=== PATIENT | female | born 1995 | race Caucasian/White ===

== ENCOUNTER 2016-09-26 23:21 | Emergency (ER) | payer OTHER ==
[2016-09-27 00:10] LABS: BASO # 0.1 K/mm3 (0.0-0.2); BASO % 1.4 % (0.0-1.0); EOS # 0.3 K/mm3 (0.0-0.50); EOS % 2.5 % (0.0-3.0); LARGE UNSTAINED CELL # 0.2 K/mm3 (0.0-0.4); LARGE UNSTAINED CELL % 1.8 % (0.0-4.0); MEAN CORPUSCULAR HGB CONC 32.9 g/dl (32.0-36.5); MONO # 0.4 K/mm3 (0.0-0.8); NEUTROPHILS # 5.5 K/mm3 (1.8-7.7); NEUTROPHILS % 53.3 % (36.0-66.0); PLATELET COUNT, AUTOMATED 341 k/mm3 (150-450); RED CELL DISTRIBUTION WIDTH 13.7 % (11.5-14.5); WHITE BLOOD COUNT 10.3 K/mm3 (4.0-10.0)
[2016-09-27] MEDS ORDERED: predniSONE 20 MG TAB As Ordered ONE (00:22)
[2016-09-27] MEDS ORDERED: metroNIDAZOLE (FLAGYL) 250 MG TAB As Ordered ONE (01:03)
[2016-09-27] MEDS ORDERED: FLUCONAZOLE 100 MG TAB As Ordered ONE (01:04)
--- NOTE | 2016-09-27 01:18 | EDDOCDS ---
Physician Documentation [facility] Name: Darwin Garrett Age: 21 yrs Sex: Female : 1995 Arrival Date: 09/26/2016 Time: 23:21 Bed I4 / M4 Private MD: Other - Complete Info On Cds Disposition: 09/27/16 01:03 Discharged to Home/Self Care. Impression: Vaginitis, vulvitis and vulvovaginitis in diseases classified elsewhere, Candidiasis of vulva and vagina, Allergic contact dermatitis. - Condition is Stable. - Discharge Instructions: Bacterial Vaginosis, Contact Dermatitis, Vaginitis, Monilial. - Prescriptions for Metronidazole 500 mg Oral Tablet - take 1 tablet by ORAL route 2 times per day for 7 days; 13 tablet. Betamethasone Dipropionate 0.05 % Topical Cream - apply 1 application by TOPICAL route once daily; 1 tube. - Medication Reconciliation, Local Pharmacy Hours form. - Follow up: Emergency Department; When: As needed. Follow up: RENEE Fowler; When: Call to arrange an appointment; Reason: Wound/Symptom Recheck, Recheck today's complaints, Worsening of conditions, Continuance of care. - Problem is an ongoing problem. - Symptoms are unchanged. Historical: - Allergies: No known drug Allergies; - Home Meds: 1. TriNessa Lo 0.18/0.215/0.25 mg-25 mcg oral tab 1 tab once daily - PMHx: Irregular Menses; - PSHx: none; - Social history: Smoking status: Patient states was never smoker of tobacco. No barriers to communication noted, The patient speaks fluent Nepali. - Family history: Not pertinent. - : The pt / caregiver states he / she is not on anticoagulants. Home medication list is obtained from the patient. - Exposure Risk Screening:: None identified. 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 9 in. (175.26 cm) (R); Pain 6/10; 09/27 01:06 BP 119 / 67; Pulse 78; Resp 18; Temp 96.8; Pulse Ox 98% ; Pain 3/10; ajs 09/26 23:24 Body Mass Index 16.83 (51.71 kg, 175.26 cm) gr2 MDM: 09/26 23:47 UCG by Nursing ordered. cc10 23:47 Set up pelvic ordered. cc10 23:47 Undress patient appropriately for examination ordered. cc10 23:47 CBC with Diff Ordered. EDMS 23:47 UA Ordered. EDMS 23:47 GC & Chlamydia Amplification Ordered. EDMS 23:48 TSH w/o Free T4 Ordered. EDMS 23:48 Wet Prep Ordered. EDMS 23:48 -US Pelvic Non-Ob Complete Ordered. EDMS 23:48 DUPLEX SCAN LIMITED (DOPPLER)+US Ordered. EDMS 23:49 Financial registration complete. [facility] 23:50 [facility] Payment Agreement was scanned into [employer] and attached to record. [facility] 09/27 00:19 Fluid Challenge ordered. cc10 00:19 predniSONE 20 mg PO once; administer with food or milk ordered. cc10 00:19 CBC with Diff Reviewed. cc10 00:47 UA Reviewed. cc10 00:47 Wet Prep Reviewed. cc10 00:47 TSH w/o Free T4 Reviewed. cc10 00:54 Transvaginal NON- US Ordered. EDMS 01:01 Fluconazole 200 mg PO once ordered. cc10 01:01 metroNIDAZOLE 500 mg PO once ordered. cc10 Point of Care Testing: Urine : 00:10 hCG Reading: Negative; Control Reading: Positive; ajs Ranges: Administered Medications: 00:23 Drug: predniSONE 20 mg [prednisone 20 mg tablet (1 tabs)] Route: PO; bcj 01:09 Drug: Fluconazole 200 mg [fluconazole 100 mg tablet (2 tabs)] Route: PO; af2 01:09 Drug: metroNIDAZOLE 500 mg [metronidazole 500 mg tablet (1 tabs)] Route: PO; af2 Signatures: Dispatcher MedHost EDMS Hollis Tabor PA-C PA-C cc10 Saige Chew [facility] Ketty Silva RN RN af2 Kalyan Sidhu RN bcj The chart was reviewed and I authenticate all verbal orders and agree with the evaluation and treatment provided.Attachments: 09/26 23:50 [facility] [place] [facility] MTDD
--- NOTE | 2016-09-27 01:19 | EDDOCDS ---
Nurse's Notes [facility] Name: Darwin Garrett Age: 21 yrs Sex: Female : 1995 Arrival Date: 09/26/2016 Time: 23:21 Bed I4 / M4 Private MD: Other - Complete Info On Cds Diagnosis: Vaginitis, vulvitis and vulvovaginitis in diseases classified elsewhere;Candidiasis of vulva and vagina;Allergic contact dermatitis Presentation: 09/26 23:26 Presenting complaint: Patient states: rash on left inner thigh spreading, thinks it may af2 be poison clary; lmp 06/13/16, reports vaginal bleeding-dark brown, painful- recently started new control 2 weeks ago. Risk factors: The patient reports no loss of conciousness prior to arrival. This patient has not had a hysterectomy. This patient has not begun menopause. Adult Sepsis Screening: The patient does not have new or worsening altered mentation. Patient's respiratory rate is less than 22. Systolic blood pressure is greater than 100. Patient has a qSOFA score of 0- Negative Sepsis Screen. Suicide/Homicide risk assessment- the patient denies having any suicidal and/or homicidal ideations and does not present with any other emotional, behavioral or mental health complaints. Status: The patient is a dependent. Transition of care: patient was not received from another setting of care. 23:26 Acuity: JOSE Level 4 af2 23:26 Method Of Arrival: Walkin/Carried/Asstd af2 Triage Assessment: 23:31 General: Appears in no apparent distress, Behavior is cooperative. Pain: Location: af2 abdomen Pain currently is 5 out of 10 on a pain scale. Pt Declines HIV testing. Neurological: Level of Consciousness is awake, alert, obeys commands, Oriented to person, place, time. Respiratory: Airway is patent Respiratory effort is even, unlabored. : Reports vaginal bleeding that is brown spotty. 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 TriNessa Lo 0.18/0.215/0.25 mg-25 mcg oral tab 1 tab once daily - PMHx: Irregular Menses; - PSHx: none; - Social history: Smoking status: Patient states was never smoker of tobacco. No barriers to communication noted, The patient speaks fluent Indian. - Family history: Not pertinent. - : The pt / caregiver states he / she is not on anticoagulants. Home medication list is obtained from the patient. - Exposure Risk Screening:: None identified. Screenin/09 01:16 Screening information is obtained from the patient. Fall risk: No risks identified. af2 Assistance ADL's: requires no assistance with activities of daily living. Abuse/DV Screen: The patient / caregiver reports he/she is: not in a situation that causes fear, pain or injury. Nutritional screening: No deficits noted. Advance Directives: Currently, there is no health care proxy. home support is adequate. Assessment: 01:16 General: Appears in no apparent distress, comfortable, Behavior is cooperative. af2 Neurological: Level of Consciousness is awake, alert, obeys commands, Oriented to person, place, time. Respiratory: Airway is patent Respiratory effort is even, unlabored. Derm: Skin is normal. Vital Signs: 09/26 23:24 BP 111 / 67; Pulse 69; Resp 18 S; Temp 96.9(O); Pulse Ox 99% on R/A; Weight 51.71 kg gr2 (R); Height 5 ft. 9 in. (175.26 cm) (R); Pain 6/10; 09/27 01:06 BP 119 / 67; Pulse 78; Resp 18; Temp 96.8; Pulse Ox 98% ; Pain 3/10; ajs 09/26 23:24 Body Mass Index 16.83 (51.71 kg, 175.26 cm) gr2 Vitals: 09/26 23:24 Log In Time: September 26, 2016 at 23:24. gr2 ED Course: 23:23 Patient visited by Oskar Johnson. gr2 23:23 Other - Complete Info On Cds is Private Physician. gr2 23:23 Patient moved to Waiting gr2 23:25 Patient visited by Oskar Johnson. gr2 23:25 Patient moved to Pre RCE gr2 23:30 Triage Initiated af2 23:33 Patient visited by Ketty Silva RN. af2 23:33 Patient moved to Triage 1 af2 23:36 Hollis Tabor PA-C is PHCP. cc10 23:36 Mario Alberto Escoto DO is Attending Physician. cc10 23:36 Patient visited by Hollis Tabor PA-C. cc10 23:36 Patient visited by Hollis Tabor PA-C. cc10 23:39 Patient visited by Ketty Silva RN. af2 23:50 [facility] Payment Agreement was scanned into [employer] and attached to record. [facility] 23:52 Mya Tripp RN is Primary Nurse. ajs 23:52 Patient moved to I4 / M4 ajs 23:59 Patient name changed from Darwin\S\E\S\Stoner\S\ to Darwin\S\Dora\S\Stoner. EDMS 09/27 00:06 UA Sent. ajs 00:06 CBC with Diff Sent. ajs 00:06 TSH w/o Free T4 Sent. ajs 00:11 Patient visited by Cathy Gutierrez. ajs 00:21 GC & Chlamydia Amplification Sent. bcj 00:21 Wet Prep Sent. bcj 00:26 Patient moved to Ultrasound dmg 00:42 Primary Nurse role handed off by Mya Tripp RN kb5 00:59 Patient moved to I4 / M4 dmg 01:01 Patient visited by Ketty Silva RN. af2 01:01 Transvaginal NON- US Returned. cc10 01:02 Malcolm [facility] is Referral Physician. cc10 01:06 Patient visited by Cathy Gutierrez. ajs 01:17 The patient / caregiver is instructed regarding the plan of care and ED course. af2 01:17 No IV's were initiated during this patient's visit. No procedures done that require af2 assistance. Administered Medications: 00:23 Drug: predniSONE 20 mg [prednisone 20 mg tablet (1 tabs)] Route: PO; bcj 01:09 Drug: Fluconazole 200 mg [fluconazole 100 mg tablet (2 tabs)] Route: PO; af2 01:09 Drug: metroNIDAZOLE 500 mg [metronidazole 500 mg tablet (1 tabs)] Route: PO; af2 Point of Care Testing: Urine : 00:10 hCG Reading: Negative; Control Reading: Positive; ajs Ranges: Order Results: Lab Order: CBC with Diff; SPEC'M 09/27/16 00:02 Test: WHITE BLOOD COUNT; Value: 10.3; Range: 4.0-10.0; Abnormal: Above high normal; Units: K/mm3; Status: F Test: RED BLOOD COUNT; Value: 4.87; Range: 4.00-5.40; Units: M/mm3; Status: F Test: HEMOGLOBIN; Value: 13.6; Range: 12.0-16.0; Units: g/dl; Status: F Test: HEMATOCRIT; Value: 41.4; Range: 36.0-47.0; Units: %; Status: F Test: MEAN CORPUSCULAR VOLUME; Value: 85.0; Range: 80.0-96.0; Units: fl; Status: F Test: MEAN CORPUSCULAR HEMOGLOBIN; Value: 28.0; Range: 27.0-33.0; Units: pg; Status: F Test: MEAN CORPUSCULAR HGB CONC; Value: 32.9; Range: 32.0-36.5; Units: g/dl; Status: F Test: RED CELL DISTRIBUTION WIDTH; Value: 13.7; Range: 11.5-14.5; Units: %; Status: F Test: PLATELET COUNT, AUTOMATED; Value: 341; Range: 150-450; Units: k/mm3; Status: F Test: NEUTROPHILS %; Value: 53.3; Range: 36.0-66.0; Units: %; Status: F Test: LYMPH %; Value: 37.0; Range: 24.0-44.0; Units: %; Status: F Test: MONO %; Value: 4.0; Range: 0.0-5.0; Units: %; Status: F Test: EOS %; Value: 2.5; Range: 0.0-3.0; Units: %; Status: F Test: BASO %; Value: 1.4; Range: 0.0-1.0; Abnormal: Above high normal; Units: %; Status: F Test: LARGE UNSTAINED CELL %; Value: 1.8; Range: 0.0-4.0; Units: %; Status: F Test: NEUTROPHILS #; Value: 5.5; Range: 1.8-7.7; Units: K/mm3; Status: F Test: LYMPH #; Value: 4.0; Range: 1.5-6.5; Units: K/mm3; Status: F Test: MONO #; Value: 0.4; Range: 0.0-0.8; Units: K/mm3; Status: F Test: EOS #; Value: 0.3; Range: 0.0-0.50; Units: K/mm3; Status: F Test: BASO #; Value: 0.1; Range: 0.0-0.2; Units: K/mm3; Status: F Test: LARGE UNSTAINED CELL #; Value: 0.2; Range: 0.0-0.4; Units: K/mm3; Status: F Lab Order: UA; SPEC'M 09/27/16 00:02 Test: APPEARANCE, URINE; Value: CLEAR; Range: CLEAR; Status: F Test: COLOR, URINE; Value: YELLOW; Range: YELLOW; Status: F Test: PH,URINE; Value: 7.0; Range: 5.0-9.0; Units: UNITS; Status: F Test: SPECIFIC GRAVITY URINE AUTO; Value: 1.025; Range: 1.002-1.035; Status: F Test: PROTEIN, URINE AUTO; Value: NEGATIVE; Range: NEGATIVE; Units: mg/dL; Status: F Test: GLUCOSE, URINE (UA) AUTO; Value: NEGATIVE; Range: NEGATIVE; Units: mg/dL; Status: F Test: KETONE, URINE AUTO; Value: NEGATIVE; Range: NEGATIVE; Units: mg/dL; Status: F Test: UROBILINOGEN, URINE AUTO; Value: 0.2; Range: 0.0-2.0; Units: mg/dL; Status: F Test: BILIRUBIN, URINE AUTO; Value: NEGATIVE; Range: NEGATIVE; Status: F Test: NITRITE, URINE AUTO; Value: NEGATIVE; Range: NEGATIVE; Status: F Test: LEUKOCYTE ESTERASE, URINE AUTO; Value: NEGATIVE; Range: NEGATIVE; Status: F Test: BLOOD, URINE BLOOD; Value: NEGATIVE; Range: NEGATIVE; Status: F Test: WBC, URINE AUTO; Value: 0; Range: 0-3; Units: /HPF; Status: F Test: RBC, URINE AUTO; Value: 1; Range: 0-3; Units: /HPF; Status: F Test: BACTERIA, URINE AUTO; Value: NEGATIVE; Range: NEGATIVE; Status: F Test: SQUAMOUS EPITHELIAL CELL UR AU; Value: 0; Range: 0-6; Units: /HPF; Status: F Test: MUCUS, URINE; Value: SMALL; Range: NEGATIVE; Status: F Test: HYALINE CAST, URINE AUTO; Value: 0; Range: 0-1; Units: /LPF; Status: F Lab Order: Wet Prep; SPEC'M 09/26/16 23:56 Test: WET PREP; Value: WET PREP RESULT; Status: F Test: WET PREP; Value: MANY EPITHELIAL CELLS PRESENT; Status: F Test: WET PREP; Value: MODERATE CLUE CELLS PRESENT; Status: F Test: WET PREP; Value: MANY WBC; Status: F Test: WET PREP; Value: MANY LONG RODS PRESENT; Status: F Test: WET PREP; Value: MODERATE SHORT RODS PRESENT; Status: F Test: WET PREP; Value: FEW RBC; Status: F Test: WET PREP; Value: FEW YEAST LIKE ORGANISM WITH PSEUDOHYPHAE PRESENT; Status: F Lab Order: TSH w/o Free T4; SPEC'M 09/27/16 00:02 Test: THYROID STIMULATING HORMONE; Value: 2.750; Range: 0.358-3.740; Units: uIU/ML; Status: F Outcome: 01:03 Discharge ordered by Provider. cc10 01:17 Discharge Assessment: Patient awake, alert and oriented x 3. No cognitive and/or af2 functional deficits noted. Patient verbalized understanding of disposition instructions. patient administered narcotics - no. The following High Risk Discharge criteria are identified: None. Discharged to home ambulatory. Condition: stable. Discharge instructions given to patient, Instructed on discharge instructions, follow up and referral plans. medication usage, Demonstrated understanding of instructions, medications, Pt was receptive of discharge instructions/ teaching. No special radiology studies were completed. Property :Personal belongings accompany Pt. 01:18 Patient left the ED. af2 Signatures: Dispatcher MedHost EDKalyan Preciado, RN RN Jazz Ornelas Kristopher, MAEGAN OPERATOR [employer] kb5 Cathy Gutierrez Gainslee gr2 Hollis Tabor, PA-C PA-C cc10 Saige Chew Amber,EVGENY RN af2 MTDD
--- NOTE | 2016-09-27 02:10 | REPUSA ---
CLINICAL HISTORY: Pelvic pain. Spotting. TECHNIQUE: Realtime sonographic images were obtained in multiple projections via TV approach. COMMENTS: The uterus is anteverted measuring 9.2 x 3.6x5.4 cm. The endometrial echo pattern is within normal li mits measuring 14.1 mm. There is no evidence of free fluid within the pelvic cul-de-sac. The right ovary measures 4.1x2.7x2.6 cm and the left ovary measures 3.7x2.7x2.5 cm. Both ovaries are free of solid or cystic mass. There is no evidence for abnormal vascularity. IMPRESSION: Normal study. Thank you for your kind referral of this patient.
--- NOTE | 2016-09-29 02:19 | EDDOCDS ---
Physician Documentation [facility] Name: Darwin Garrett Age: 21 yrs Sex: Female : 1995 Arrival Date: 09/26/2016 Time: 23:21 Bed I4 / M4 Private MD: Other - Complete Info On Cds Disposition: 09/27/16 01:03 Discharged to Home/Self Care. Impression: Vaginitis, vulvitis and vulvovaginitis in diseases classified elsewhere, Candidiasis of vulva and vagina, Allergic contact dermatitis. - Condition is Stable. - Discharge Instructions: Bacterial Vaginosis, Contact Dermatitis, Vaginitis, Monilial. - Prescriptions for Metronidazole 500 mg Oral Tablet - take 1 tablet by ORAL route 2 times per day for 7 days; 13 tablet. Betamethasone Dipropionate 0.05 % Topical Cream - apply 1 application by TOPICAL route once daily; 1 tube. - Medication Reconciliation, Local Pharmacy Hours form. - Follow up: Emergency Department; When: As needed. Follow up: RENEE Fowler; When: Call to arrange an appointment; Reason: Wound/Symptom Recheck, Recheck today's complaints, Worsening of conditions, Continuance of care. - Problem is an ongoing problem. - Symptoms are unchanged. Historical: - Allergies: No known drug Allergies; - Home Meds: 1. TriNessa Lo 0.18/0.215/0.25 mg-25 mcg oral tab 1 tab once daily - PMHx: Irregular Menses; - PSHx: none; - Social history: Smoking status: Patient states was never smoker of tobacco. No barriers to communication noted, The patient speaks fluent Hungarian. - Family history: Not pertinent. - : The pt / caregiver states he / she is not on anticoagulants. Home medication list is obtained from the patient. - Exposure Risk Screening:: None identified. 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 9 in. (175.26 cm) (R); Pain 6/10; 09/27 01:06 BP 119 / 67; Pulse 78; Resp 18; Temp 96.8; Pulse Ox 98% ; Pain 3/10; ajs 09/26 23:24 Body Mass Index 16.83 (51.71 kg, 175.26 cm) gr2 MDM: 09/26 23:47 UCG by Nursing ordered. cc10 23:47 Set up pelvic ordered. cc10 23:47 Undress patient appropriately for examination ordered. cc10 23:47 CBC with Diff Ordered. EDMS 23:47 UA Ordered. EDMS 23:47 GC & Chlamydia Amplification Ordered. EDMS 23:48 TSH w/o Free T4 Ordered. EDMS 23:48 Wet Prep Ordered. EDMS 23:48 -US Pelvic Non-Ob Complete Ordered. EDMS 23:48 DUPLEX SCAN LIMITED (DOPPLER)+US Ordered. EDMS 23:49 [facility] registration complete[facility] 23:50 [facility] Payment Agreement was scanned into [employer] and attached to record. [facility] 09/27 00:19 Fluid Challenge ordered. cc10 00:19 predniSONE 20 mg PO once; administer with food or milk ordered. cc10 00:19 CBC with Diff Reviewed. cc10 00:47 UA Reviewed. cc10 00:47 Wet Prep Reviewed. cc10 00:47 TSH w/o Free T4 Reviewed. cc10 00:54 Transvaginal NON- US Ordered. EDMS 01:01 Fluconazole 200 mg PO once ordered. cc10 01:01 metroNIDAZOLE 500 mg PO once ordered. cc10 11:41 T-Sheet-- Draft Copy was scanned into [employer] and attached to record. Point of Care Testing: Urine : 00:10 hCG Reading: Negative; Control Reading: Positive; ajs Ranges: Administered Medications: 00:23 Drug: predniSONE 20 mg [prednisone 20 mg tablet (1 tabs)] Route: PO; bcj 01:09 Drug: Fluconazole 200 mg [fluconazole 100 mg tablet (2 tabs)] Route: PO; af2 01:09 Drug: metroNIDAZOLE 500 mg [metronidazole 500 mg tablet (1 tabs)] Route: PO; af2 Signatures: Dispatcher MedHost EDOK Yanet Burns, Reg Reg gb Hollis Tabor, PAJoshuaC PAJoshuaC cc10 Saige Chew [facility] Ketty Silva RN RN af2 Kalyan Sidhu RN bcj The chart was reviewed and I authenticate all verbal orders and agree with the evaluation and treatment provided.Attachments: 09/26 23:50 [place] Payment Agreement [facility] 09/27 11:41 T-Sheet-- Draft Copy gb Chart Complete MTDD
--- NOTE | 2016-09-29 02:19 | EDDOCDS ---
Physician Documentation [facility] Name: Darwin Garrett Age: 21 yrs Sex: Female : 1995 Arrival Date: 09/26/2016 Time: 23:21 Bed I4 / M4 Private MD: Other - Complete Info On Cds Disposition: 09/27/16 01:03 Discharged to Home/Self Care. Impression: Vaginitis, vulvitis and vulvovaginitis in diseases classified elsewhere, Candidiasis of vulva and vagina, Allergic contact dermatitis. - Condition is Stable. - Discharge Instructions: Bacterial Vaginosis, Contact Dermatitis, Vaginitis, Monilial. - Prescriptions for Metronidazole 500 mg Oral Tablet - take 1 tablet by ORAL route 2 times per day for 7 days; 13 tablet. Betamethasone Dipropionate 0.05 % Topical Cream - apply 1 application by TOPICAL route once daily; 1 tube. - Medication Reconciliation, Local Pharmacy Hours form. - Follow up: Emergency Department; When: As needed. Follow up: RENEE Fowler; When: Call to arrange an appointment; Reason: Wound/Symptom Recheck, Recheck today's complaints, Worsening of conditions, Continuance of care. - Problem is an ongoing problem. - Symptoms are unchanged. Historical: - Allergies: No known drug Allergies; - Home Meds: 1. TriNessa Lo 0.18/0.215/0.25 mg-25 mcg oral tab 1 tab once daily - PMHx: Irregular Menses; - PSHx: none; - Social history: Smoking status: Patient states was never smoker of tobacco. No barriers to communication noted, The patient speaks fluent Spanish. - Family history: Not pertinent. - : The pt / caregiver states he / she is not on anticoagulants. Home medication list is obtained from the patient. - Exposure Risk Screening:: None identified. 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 9 in. (175.26 cm) (R); Pain 6/10; 09/27 01:06 BP 119 / 67; Pulse 78; Resp 18; Temp 96.8; Pulse Ox 98% ; Pain 3/10; ajs 09/26 23:24 Body Mass Index 16.83 (51.71 kg, 175.26 cm) gr2 MDM: 09/26 23:47 UCG by Nursing ordered. cc10 23:47 Set up pelvic ordered. cc10 23:47 Undress patient appropriately for examination ordered. cc10 23:47 CBC with Diff Ordered. EDMS 23:47 UA Ordered. EDMS 23:47 GC & Chlamydia Amplification Ordered. EDMS 23:48 TSH w/o Free T4 Ordered. EDMS 23:48 Wet Prep Ordered. EDMS 23:48 -US Pelvic Non-Ob Complete Ordered. EDMS 23:48 DUPLEX SCAN LIMITED (DOPPLER)+US Ordered. EDMS 23:49 Financial registration complete. [facility] 23:50 [facility] Payment Agreement was scanned into [employer] and attached to record. [facility] 09/27 00:19 Fluid Challenge ordered. cc10 00:19 predniSONE 20 mg PO once; administer with food or milk ordered. cc10 00:19 CBC with Diff Reviewed. cc10 00:47 UA Reviewed. cc10 00:47 Wet Prep Reviewed. cc10 00:47 TSH w/o Free T4 Reviewed. cc10 00:54 Transvaginal NON- US Ordered. EDMS 01:01 Fluconazole 200 mg PO once ordered. cc10 01:01 metroNIDAZOLE 500 mg PO once ordered. cc10 11:41 T-Sheet-- Draft Copy was scanned into [employer] and attached to record. Point of Care Testing: Urine : 00:10 hCG Reading: Negative; Control Reading: Positive; ajs Ranges: Administered Medications: 00:23 Drug: predniSONE 20 mg [prednisone 20 mg tablet (1 tabs)] Route: PO; bcj 01:09 Drug: Fluconazole 200 mg [fluconazole 100 mg tablet (2 tabs)] Route: PO; af2 01:09 Drug: metroNIDAZOLE 500 mg [metronidazole 500 mg tablet (1 tabs)] Route: PO; af2 Signatures: Dispatcher MedHost EDHI Yanet Burns, Reg Reg gb Hollis Tabor, PAJoshuaC PAJoshuaC cc10 Saige Chew [facility] Ketty Silva RN RN af2 Kalyan Sidhu RN bcj The chart was reviewed and I authenticate all verbal orders and agree with the evaluation and treatment provided.Attachments: 09/26 23:50 [place] Payment Agreement [facility] 09/27 11:41 T-Sheet-- Draft Copy gb Chart Complete MTDD
--- NOTE | 2016-09-29 02:19 | EDDOCDS ---
Nurse's Notes [facility] Name: Darwin Garrett Age: 21 yrs Sex: Female : 1995 Arrival Date: 09/26/2016 Time: 23:21 Bed I4 / M4 Private MD: Other - Complete Info On Cds Diagnosis: Vaginitis, vulvitis and vulvovaginitis in diseases classified elsewhere;Candidiasis of vulva and vagina;Allergic contact dermatitis Presentation: 09/26 23:26 Presenting complaint: Patient states: rash on left inner thigh spreading, thinks it may af2 be poison clary; lmp 06/13/16, reports vaginal bleeding-dark brown, painful- recently started new control 2 weeks ago. Risk factors: The patient reports no loss of conciousness prior to arrival. This patient has not had a hysterectomy. This patient has not begun menopause. Adult Sepsis Screening: The patient does not have new or worsening altered mentation. Patient's respiratory rate is less than 22. Systolic blood pressure is greater than 100. Patient has a qSOFA score of 0- Negative Sepsis Screen. Suicide/Homicide risk assessment- the patient denies having any suicidal and/or homicidal ideations and does not present with any other emotional, behavioral or mental health complaints. Status: The patient is a dependent. Transition of care: patient was not received from another setting of care. 23:26 Acuity: JSOE Level 4 af2 23:26 Method Of Arrival: Walkin/Carried/Asstd af2 Triage Assessment: 23:31 General: Appears in no apparent distress, Behavior is cooperative. Pain: Location: af2 abdomen Pain currently is 5 out of 10 on a pain scale. Pt Declines HIV testing. Neurological: Level of Consciousness is awake, alert, obeys commands, Oriented to person, place, time. Respiratory: Airway is patent Respiratory effort is even, unlabored. : Reports vaginal bleeding that is brown spotty. 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 TriNessa Lo 0.18/0.215/0.25 mg-25 mcg oral tab 1 tab once daily - PMHx: Irregular Menses; - PSHx: none; - Social history: Smoking status: Patient states was never smoker of tobacco. No barriers to communication noted, The patient speaks fluent Burundian. - Family history: Not pertinent. - : The pt / caregiver states he / she is not on anticoagulants. Home medication list is obtained from the patient. - Exposure Risk Screening:: None identified. Screenin/09 01:16 Screening information is obtained from the patient. Fall risk: No risks identified. af2 Assistance ADL's: requires no assistance with activities of daily living. Abuse/DV Screen: The patient / caregiver reports he/she is: not in a situation that causes fear, pain or injury. Nutritional screening: No deficits noted. Advance Directives: Currently, there is no health care proxy. home support is adequate. Assessment: 01:16 General: Appears in no apparent distress, comfortable, Behavior is cooperative. af2 Neurological: Level of Consciousness is awake, alert, obeys commands, Oriented to person, place, time. Respiratory: Airway is patent Respiratory effort is even, unlabored. Derm: Skin is normal. Vital Signs: 09/26 23:24 BP 111 / 67; Pulse 69; Resp 18 S; Temp 96.9(O); Pulse Ox 99% on R/A; Weight 51.71 kg gr2 (R); Height 5 ft. 9 in. (175.26 cm) (R); Pain 6/10; 09/27 01:06 BP 119 / 67; Pulse 78; Resp 18; Temp 96.8; Pulse Ox 98% ; Pain 3/10; ajs 09/26 23:24 Body Mass Index 16.83 (51.71 kg, 175.26 cm) gr2 Vitals: 09/26 23:24 Log In Time: September 26, 2016 at 23:24. gr2 ED Course: 23:23 Patient visited by Oskar Johnson. gr2 23:23 Other - Complete Info On Cds is Private Physician. gr2 23:23 Patient moved to Waiting gr2 23:25 Patient visited by Oskar Johnson. gr2 23:25 Patient moved to Pre RCE gr2 23:30 Triage Initiated af2 23:33 Patient visited by Ketty Silva RN. af2 23:33 Patient moved to Triage 1 af2 23:36 Hollis Tabor PA-C is PHCP. cc10 23:36 Mario Alberto Escoto DO is Attending Physician. cc10 23:36 Patient visited by Hollis Tabor PA-C. cc10 23:36 Patient visited by Hollis Tabor PA-C. cc10 23:39 Patient visited by Ketty Silva RN. af2 23:50 [facility] Payment Agreement was scanned into [employer] and attached to record. [facility] 23:52 Mya Tripp RN is Primary Nurse. ajs 23:52 Patient moved to I4 / M4 ajs 23:59 Patient name changed from Darwin\S\E\S\Stoner\S\ to Darwin\S\Dora\S\Stoner. EDMS 09/27 00:06 UA Sent. ajs 00:06 CBC with Diff Sent. ajs 00:06 TSH w/o Free T4 Sent. ajs 00:11 Patient visited by Cathy Gutierrez. ajs 00:21 GC & Chlamydia Amplification Sent. bcj 00:21 Wet Prep Sent. bcj 00:26 Patient moved to Ultrasound dmg 00:42 Primary Nurse role handed off by Mya Tripp RN kb5 00:59 Patient moved to I4 / M4 dmg 01:01 Patient visited by Ketty Silva RN. af2 01:01 Transvaginal NON- US Returned. cc10 01:02 [place] [facility] [place] Physician. cc10 01:06 Patient visited by Cathy Gutierrez. ajs 01:17 The patient / caregiver is instructed regarding the plan of care and ED course. af2 01:17 No IV's were initiated during this patient's visit. No procedures done that require af2 assistance. 02:26 -US Pelvic Non-Ob Complete Returned. EDMS 11:41 T-Sheet-- Draft Copy was scanned into [employer] and attached to record. gb Administered Medications: 00:23 Drug: predniSONE 20 mg [prednisone 20 mg tablet (1 tabs)] Route: PO; bcj 01:09 Drug: Fluconazole 200 mg [fluconazole 100 mg tablet (2 tabs)] Route: PO; af2 01:09 Drug: metroNIDAZOLE 500 mg [metronidazole 500 mg tablet (1 tabs)] Route: PO; af2 Point of Care Testing: Urine : 00:10 hCG Reading: Negative; Control Reading: Positive; ajs Ranges: Order Results: Lab Order: CBC with Diff; SPEC'M 01/09/17 00:02 Test: WHITE BLOOD COUNT; Value: 10.3; Range: 4.0-10.0; Abnormal: Above high normal; Units: K/mm3; Status: F Test: RED BLOOD COUNT; Value: 4.87; Range: 4.00-5.40; Units: M/mm3; Status: F Test: HEMOGLOBIN; Value: 13.6; Range: 12.0-16.0; Units: g/dl; Status: F Test: HEMATOCRIT; Value: 41.4; Range: 36.0-47.0; Units: %; Status: F Test: MEAN CORPUSCULAR VOLUME; Value: 85.0; Range: 80.0-96.0; Units: fl; Status: F Test: MEAN CORPUSCULAR HEMOGLOBIN; Value: 28.0; Range: 27.0-33.0; Units: pg; Status: F Test: MEAN CORPUSCULAR HGB CONC; Value: 32.9; Range: 32.0-36.5; Units: g/dl; Status: F Test: RED CELL DISTRIBUTION WIDTH; Value: 13.7; Range: 11.5-14.5; Units: %; Status: F Test: PLATELET COUNT, AUTOMATED; Value: 341; Range: 150-450; Units: k/mm3; Status: F Test: NEUTROPHILS %; Value: 53.3; Range: 36.0-66.0; Units: %; Status: F Test: LYMPH %; Value: 37.0; Range: 24.0-44.0; Units: %; Status: F Test: MONO %; Value: 4.0; Range: 0.0-5.0; Units: %; Status: F Test: EOS %; Value: 2.5; Range: 0.0-3.0; Units: %; Status: F Test: BASO %; Value: 1.4; Range: 0.0-1.0; Abnormal: Above high normal; Units: %; Status: F Test: LARGE UNSTAINED CELL %; Value: 1.8; Range: 0.0-4.0; Units: %; Status: F Test: NEUTROPHILS #; Value: 5.5; Range: 1.8-7.7; Units: K/mm3; Status: F Test: LYMPH #; Value: 4.0; Range: 1.5-6.5; Units: K/mm3; Status: F Test: MONO #; Value: 0.4; Range: 0.0-0.8; Units: K/mm3; Status: F Test: EOS #; Value: 0.3; Range: 0.0-0.50; Units: K/mm3; Status: F Test: BASO #; Value: 0.1; Range: 0.0-0.2; Units: K/mm3; Status: F Test: LARGE UNSTAINED CELL #; Value: 0.2; Range: 0.0-0.4; Units: K/mm3; Status: F Lab Order: UA; SPEC'M 09/27/16 00:02 Test: APPEARANCE, URINE; Value: CLEAR; Range: CLEAR; Status: F Test: COLOR, URINE; Value: YELLOW; Range: YELLOW; Status: F Test: PH,URINE; Value: 7.0; Range: 5.0-9.0; Units: UNITS; Status: F Test: SPECIFIC GRAVITY URINE AUTO; Value: 1.025; Range: 1.002-1.035; Status: F Test: PROTEIN, URINE AUTO; Value: NEGATIVE; Range: NEGATIVE; Units: mg/dL; Status: F Test: GLUCOSE, URINE (UA) AUTO; Value: NEGATIVE; Range: NEGATIVE; Units: mg/dL; Status: F Test: KETONE, URINE AUTO; Value: NEGATIVE; Range: NEGATIVE; Units: mg/dL; Status: F Test: UROBILINOGEN, URINE AUTO; Value: 0.2; Range: 0.0-2.0; Units: mg/dL; Status: F Test: BILIRUBIN, URINE AUTO; Value: NEGATIVE; Range: NEGATIVE; Status: F Test: NITRITE, URINE AUTO; Value: NEGATIVE; Range: NEGATIVE; Status: F Test: LEUKOCYTE ESTERASE, URINE AUTO; Value: NEGATIVE; Range: NEGATIVE; Status: F Test: BLOOD, URINE BLOOD; Value: NEGATIVE; Range: NEGATIVE; Status: F Test: WBC, URINE AUTO; Value: 0; Range: 0-3; Units: /HPF; Status: F Test: RBC, URINE AUTO; Value: 1; Range: 0-3; Units: /HPF; Status: F Test: BACTERIA, URINE AUTO; Value: NEGATIVE; Range: NEGATIVE; Status: F Test: SQUAMOUS EPITHELIAL CELL UR AU; Value: 0; Range: 0-6; Units: /HPF; Status: F Test: MUCUS, URINE; Value: SMALL; Range: NEGATIVE; Status: F Test: HYALINE CAST, URINE AUTO; Value: 0; Range: 0-1; Units: /LPF; Status: F Lab Order: Wet Prep; SPEC'M 09/26/16 23:56 Test: WET PREP; Value: WET PREP RESULT; Status: F Test: WET PREP; Value: MANY EPITHELIAL CELLS PRESENT; Status: F Test: WET PREP; Value: MODERATE CLUE CELLS PRESENT; Status: F Test: WET PREP; Value: MANY WBC; Status: F Test: WET PREP; Value: MANY LONG RODS PRESENT; Status: F Test: WET PREP; Value: MODERATE SHORT RODS PRESENT; Status: F Test: WET PREP; Value: FEW RBC; Status: F Test: WET PREP; Value: FEW YEAST LIKE ORGANISM WITH PSEUDOHYPHAE PRESENT; Status: F Lab Order: GC & Chlamydia Amplification; SPEC'M 09/26/16 23:56 Test: CHLAMYDIA DNA AMPLIFICATION; Value: NEGATIVE; Range: NEGATIVE; Status: F Test: GC DNA AMPLIFICATION; Value: NEGATIVE; Range: NEGATIVE; Status: F Lab Order: TSH w/o Free T4; SPEC'M 09/27/16 00:02 Test: THYROID STIMULATING HORMONE; Value: 2.750; Range: 0.358-3.740; Units: uIU/ML; Status: F Radiology Order: -US Pelvic Non-Ob Complete Test: -US Pelvic Non-Ob Complete REASON FOR EXAMINATION: Vaginal Bleeding - Nn-; ; CLINICAL HISTORY: Pelvic pain. Spotting.; TECHNIQUE: Realtime sonographic images were obtained in multiple projections via TV approach.; COMMENTS:; The uterus is anteverted measuring 9.2 x 3.6x5.4 cm. The endometrial echo pattern is within normal li; mits measuring 14.1 mm.; There is no evidence of free fluid within the pelvic cul-de-sac.; The right ovary measures 4.1x2.7x2.6 cm and the left ovary measures 3.7x2.7x2.5 cm. Both ovaries are; free of solid or cystic mass.; There is no evidence for abnormal vascularity.; IMPRESSION:; Normal study.; Thank you for your kind referral of this patient.; ; ; Outcome: 01:03 Discharge ordered by Provider. cc10 01:17 Discharge Assessment: Patient awake, alert and oriented x 3. No cognitive and/or af2 functional deficits noted. Patient verbalized understanding of disposition instructions. patient administered narcotics - no. The following High Risk Discharge criteria are identified: None. Discharged to home ambulatory. Condition: stable. Discharge instructions given to patient, Instructed on discharge instructions, follow up and referral plans. medication usage, Demonstrated understanding of instructions, medications, Pt was receptive of discharge instructions/ teaching. No special radiology studies were completed. Property :Personal belongings accompany Pt. 01:18 Patient left the ED. af2 Signatures: Dispatcher [employer] EDKalyan Preciado, RN RN gabe Choi, JazzYanet Mcgee, Reg Reg gb Bairon Lynn, CIVIL SERVICE CLERK CIVIL SERVICE CLERK kb5 Cathy Gutierrez [place] gr2 Hollis Tabor, PA-C PA-C cc10 Saige Chew Amber, RN RN af2 Chart Complete [id number]
== END 2016-09-27 01:18 | disposition home or self-care (01) ==
LOC: M ED 23:21
DX: B37.3 Candidiasis of vulva and vagina (principal); L30.9 Dermatitis, unspecified; N92.6 Irregular menstruation, unspecified; Z79.3 Long term (current) use of hormonal contraceptives

== ENCOUNTER 2017-01-02 23:37 | Emergency (ER) | payer OTHER ==
[~2017-01-02] VITALS: Ht 172.7 cm; Wt 54.4 kg
[2017-01-03] MEDS ORDERED: ACETAMINOPHEN SUSP DYE FREE 160 MG/5 ML UDC PO ONE (01:00)
[2017-01-03] MEDS ORDERED: PYRI200T5 PO (01:18)
[2017-01-03] MEDS ORDERED: CIPR500T89 PO (01:18)
[2017-01-03] MEDS ORDERED: DIFL150T PO (01:18)
[2017-01-03 01:29] VITALS: BP 107/67
[2017-01-03] MEDS ORDERED: PHENAZOPYRIDINE 100 MG TAB PO ONE (01:30)
[2017-01-03] MEDS ORDERED: CIPROFLOXACIN 500 MG TAB PO ONE (01:30)
== END 2017-01-03 01:30 | disposition home or self-care (01) ==
LOC: M ED 01-03 01:09
DX: N39.0 Urinary tract infection, site not specified (principal); Z87.440 Personal history of urinary (tract) infections

== ENCOUNTER 2018-02-09 16:34 | Emergency (ER) | payer OTHER | END 2018-02-09 18:16 | disposition left against medical advice (07) | LOC: M ED 16:34 | DX: N93.9 Abnormal uterine and vaginal bleeding, unspecified (principal); Z53.21 Procedure and treatment not carried out due to patient leaving prior to being seen by health care provider ==

== ENCOUNTER → 2018-05-19 | Outpatient (CLI) | payer OTHER ==
[~2018-05-19] MED LIST: ISOVUE-370 76% 100ML VIAL (Q9967) As Ordered
== END ==
LOC: M RADPRO 11:34
DX: N97.9 Female infertility, unspecified (principal)
CPT/HCPCS: 58340

== ENCOUNTER 2018-09-30 17:37 | Emergency (ER) | payer OTHER ==
[~2018-09-30] VITALS: Ht 175.3 cm; Wt 57.3 kg
[~2018-09-30 17:37] MED LIST changes: +CIPR-249 PO; +DIFL150T PO; -ISOVUE-370 76% 100ML VIAL (Q9967) As Ordered; +METF10004 PO; +PYRI1TAB5 PO
[2018-09-30 18:12] LABS: APPEARANCE, URINE CLEAR (CLEAR); BACTERIA, URINE AUTO NEGATIVE (NEGATIVE); BILIRUBIN, URINE AUTO NEGATIVE (NEGATIVE); BLOOD, URINE BLOOD NEGATIVE (NEGATIVE); COLOR, URINE STRAW (YELLOW); GLUCOSE, URINE (UA) AUTO NEGATIVE (NEGATIVE); KETONE, URINE AUTO NEGATIVE (NEGATIVE); LEUKOCYTE ESTERASE, URINE AUTO NEGATIVE (NEGATIVE); NITRITE, URINE AUTO NEGATIVE (NEGATIVE); PROTEIN, URINE AUTO NEGATIVE (NEGATIVE); RBC, URINE AUTO 2 /HPF (0-3); SPECIFIC GRAVITY URINE AUTO 1.004 (1.002-1.035); SQUAMOUS EPITHELIAL CELL UR AU 0 /HPF (0-6); UROBILINOGEN, URINE AUTO 0.2 mg/dL (0.0-2.0); WBC, URINE AUTO 0 /HPF (0-3)
[2018-09-30 19:15] VITALS: BP 101/68
[2018-09-30] MEDS ORDERED: MAGNESIUM CITRATE 300 ML BTL PO ONE (19:15)
--- NOTE | 2018-09-30 20:03 | REP ---
KUB: Single view. History: Lower abdomen pain. Findings: Bowel gas pattern is normal. Umbilical jewelry is seen. There is no evidence of large or small bowel dilation. Psoas margins and flank stripes are intact. No bony abnormality is seen. No mass or organomegaly noted. Impression: Unremarkable KUB. Bowel gas pattern is normal. Electronically Signed by Herbert Morales MD 09/30/2018 07:54 P
== END 2018-09-30 19:19 | disposition home or self-care (01) ==
LOC: M ED 17:37
DX: K59.00 Constipation, unspecified (principal); E28.2 Polycystic ovarian syndrome; Z87.440 Personal history of urinary (tract) infections; Z79.84 Long term (current) use of oral hypoglycemic drugs

== ENCOUNTER 2018-12-04 03:23 | Emergency (ER) | payer OTHER ==
[~2018-12-04] VITALS: Ht 175.3 cm; Wt 58.6 kg
[2018-12-04] MEDS ORDERED: clomid (03:56)
[2018-12-04] MEDS ORDERED: PRENTAB45 PO (03:56)
[2018-12-04] MEDS ORDERED: ACETAMINOPHEN 325 MG TAB As Ordered ONE (04:06)
[2018-12-04] MEDS ORDERED: ACETAMINOPHEN TAB 650MG DOSE (2X325MG) PO ONE (04:15)
[2018-12-04 06:30] VITALS: BP 119/76
[2018-12-04] MEDS ORDERED: IBUPROFEN 600 MG TAB PO ONE (06:30)
== END 2018-12-04 07:31 | disposition home or self-care (01) ==
LOC: M ED 03:23
DX: R51 Headache (principal); Z04.71 Encounter for examination and observation following alleged adult physical abuse; Z79.818 Long term (current) use of other agents affecting estrogen receptors and estrogen levels; Z79.899 Other long term (current) drug therapy

== ENCOUNTER 2019-01-17 14:10 | Emergency (ER) | payer OTHER ==
[~2019-01-17] VITALS: Ht 175.3 cm; Wt 59.0 kg
[~2019-01-17 14:10] MED LIST changes: +PRENTAB45 PO; +clomid
[2019-01-17 14:47] LABS: BASO # 0.1 10^3/uL (0.0-0.2); BASO % 0.6 % (0.0-1.0); EOS # 0.1 10^3/uL (0.0-0.50); HEMATOCRIT 36.9 % (36.0-47.0); HEMOGLOBIN 12.1 g/dl (12.0-15.5); LYMPH # 2.3 10^3/uL (1.5-6.5); LYMPH % 24.5 % (24.0-44.0); MEAN CORPUSCULAR HEMOGLOBIN 27.8 pg (27.0-33.0); MEAN CORPUSCULAR HGB CONC 32.8 g/dl (32.0-36.5); MEAN CORPUSCULAR VOLUME 84.8 fl (80.0-96.0); MONO # 0.6 10^3/uL (0.0-0.8); MONO % 6.9 % (0.0-5.0); NEUTROPHILS # 6.2 10^3/uL (1.8-7.7); NEUTROPHILS % 66.7 % (36.0-66.0); PLATELET COUNT, AUTOMATED 322 10^3/uL (150-450); RED BLOOD COUNT 4.35 10^6/uL (4.00-5.40); WHITE BLOOD COUNT 9.3 10^3/uL (4.0-10.0)
--- NOTE | 2019-01-17 16:30 | REP ---
FIRST TRIMESTER ULTRASOUND: Real-time sonographic evaluation of the pelvis performed utilizing transabdominal and endovaginal technique. Uterus measures 8.8 x 4.9 x 6.0 cm. There is a sac in the endometrial canal with a mean sac diameter of 3 mm corresponding to an estimated gestational age of 5 weeks 1 day. No yolk sac or pole is seen. This could represent a viable intrauterine . However, blighted ovum or ectopic are not excluded. Suggest correlation with serial quantitative beta hCG values. Small subchorionic hemorrhage is seen measuring 9 x 3 x 5 mm. Right ovary measures 4.7 x 2.7 x 2.4 cm and left ovary 3.7 x 2.7 x 3.2 cm. Complex cystic structure in the right ovary probably represents a complex corpus luteum 2.5 x 1.8 x 1.9 cm. There is no torsion bilaterally, resistive index right ovary 0.41 and left ovary 0.59 with duplex Doppler evaluation. Electronically Signed by Panda Castaneda MD 01/19/2019 12:03 P
[2019-01-17 16:40] VITALS: BP 100/55
== END 2019-01-17 16:55 | disposition home or self-care (01) ==
LOC: M ED 14:10
DX: O20.0 Threatened abortion (principal); O26.891 Other specified pregnancy related conditions, first trimester; Z3A.01 Less than 8 weeks gestation of pregnancy; Z79.899 Other long term (current) drug therapy

== ENCOUNTER 2019-04-12 15:22 | Emergency (ER) | payer OTHER ==
[~2019-04-12] VITALS: Ht 175.3 cm; Wt 58.0 kg
[2019-04-12 15:22] VITALS: BP 104/64
== END 2019-04-12 16:20 | disposition left against medical advice (07) ==
LOC: M ED 15:22
DX: Z53.29 Procedure and treatment not carried out because of patient's decision for other reasons (principal)

== ENCOUNTER 2019-06-21 20:40 | Outpatient (CLI) | payer OTHER ==
[~2019-06-21] VITALS: Ht 175.3 cm; Wt 64.2 kg
[2019-06-21 21:12] VITALS: BP 126/64
[2019-06-21] MEDS ORDERED: BRONCHW PO (22:02)
[2019-06-21] MEDS ORDERED: MAPA500T2 PO (22:02)
[2019-06-21] MEDS ORDERED: LIDOCAINE 5% (LIDODERM) PATCH TD ONE ×2 (22:15)
[2019-06-21] MEDS ORDERED: CYCLOBENZAPRINE 10 MG TAB PO ONE (22:15)
--- NOTE | 2019-06-21 22:30 | IPNPDOC ---
Text Note Date of Service The patient was seen on 06/21/19. NOTE patient is a 24 yo @ 26+6wks presents to l&d with lower back pain. patient had back injury from lifting about 2 months ago and lower back pain has not improved. She had tried heat back, tylenol and ibuprofen without improvement. she is able to walk without problem. bending forward to pickup anything make sit worse. no radiation to back. denies numbness tingling sensation to lower extremities. denies crampin/vb. +fm. Vitals: reviewed nad abd: gravid, soft, nt back: no bruising/lesion noted. non tender at midline palpation. tender to paravertebral muscles, tense right > left. able to bend forward, pain worse with bending backwards. LE: no edema/erythema/tenderness fhr: 140's a/p patient is @26+6wks with musculoskeletal back pain, trial of lidocaine patch and flexeril. will refer to physical therapist for continued management of back injury. DO GORDY KAMINSKI LUAT N. DO Jun 21, 2019 22:30
[2019-06-22] MEDS ORDERED: **NOTE PATIENT COMMENT** MISC XX SCH ×2 (10:30→21:00)
== END 2019-06-21 22:49 | disposition home or self-care (01) ==
LOC: M LDO 20:40
PROVIDERS: ATTEND Obstetrics & Gynecology
DX: O99.89 Other specified diseases and conditions complicating pregnancy, childbirth and the puerperium (principal); M54.5 Low back pain; Z3A.26 26 weeks gestation of pregnancy
CPT/HCPCS: G0378; G0463

== ENCOUNTER 2019-08-21 18:55 | Outpatient (CLI) | payer OTHER ==
[~2019-08-21] VITALS: Ht 175.3 cm; Wt 68.2 kg
[~2019-08-21 18:55] MED LIST changes: +BRONCHW PO; +MAPA500T2 PO
[2019-08-21 19:16] VITALS: BP 114/65
--- NOTE | 2019-08-21 20:51 | HPE ---
DATE OF ADMISSION: 08/21/2019 This lady is a 23-year-old 2, para 1, last menstrual period (LMP) 12/15/2018, estimated date of confinement (EDC) 09/21/2019 at 35 and 5 weeks of gestation with history of contractions post intercourse. No vaginal bleeding or loss. Past history: In 2013 at 37 and 4, spontaneous vaginal delivery, male, 5 pounds 14 ounces. Risk factors: She has hereditary neuropathy and nephrolithiasis. Labs are B positive, HIV negative, hepatitis negative, RPR negative, rubella immune, Varicella nonimmune. Pap normal. Urine negative. Gonorrhea and chlamydia negative. One-hour glucose 129. Blood pressure is 114/65, respirations 18, pulse 96, temperature 98.6. Urine is 1015, pH 7, and small ketones. Presently she is no acute distress. Category 1 strip with no contractions. Moderate variability. Vaginal exam: 2 cm, posterior, thick, -3 station. No vaginal loss or bleeding. GBS culture was done. The patient was discharged undelivered with precautions and increase her fluids because of her ketones being that she is dry. The patient has an appointment on Tuesday for re-evaluation.
== END 2019-08-21 20:30 | disposition home or self-care (01) ==
LOC: M LDO 18:55
PROVIDERS: ATTEND Obstetrics & Gynecology
DX: O26.893 Other specified pregnancy related conditions, third trimester (principal); R10.30 Lower abdominal pain, unspecified; Z3A.35 35 weeks gestation of pregnancy
CPT/HCPCS: 59025; 87081; G0378; G0463

== ENCOUNTER 2019-08-28 20:20 | Outpatient (CLI) | payer OTHER ==
[~2019-08-28] VITALS: Ht 175.3 cm; Wt 69.1 kg
[2019-08-28 20:37] VITALS: BP 121/75
--- NOTE | 2019-08-28 21:20 | HPE ---
DATE OF ADMISSION: 08/28/2019 A 24-year-old 2, para 1, last menstrual period (LMP) 12/15/2018, estimated date of confinement (EDC) 09/21/2019 at 36 and 5 with a history of questionable spontaneous rupture of membranes. No contractions. Risk factors: She has hereditary neuropathy and nephrolithiasis. PAST HISTORY: 2014: At 37 and 4, spontaneous vaginal delivery, male, 5 pounds 14 ounces. LABS: B positive, HIV negative, hepatitis negative, rubella immune, RPR negative. Varicella nonimmune. Pap normal. Urine negative. Gonorrhea and chlamydia are negative. 1-hour glucose was 129. GBS is negative. Temperature is 98.8, blood pressure 121/75, respirations 18, pulse 88. No urine was available. On examination, no distress. Category one strip. No contractions are noted. Sterile speculum examination: Multiparous os with a lot of mucus and a lot of white discharge. No evidence of spontaneous rupture of membranes. No pooling in the vagina or the cul-de-sac. Nitrazine was negative, slide negative. No evidence of infection. The patient has not got ruptured membranes, not joelle and has a category one strip. She was discharged undelivered. She has an appointment at [facility] for a 37-week check.
== END 2019-08-28 21:20 | disposition home or self-care (01) ==
LOC: M LDO 20:20
PROVIDERS: ATTEND Obstetrics & Gynecology
DX: O26.893 Other specified pregnancy related conditions, third trimester (principal); N89.8 Other specified noninflammatory disorders of vagina; O99.353 Diseases of the nervous system complicating pregnancy, third trimester; G60.9 Hereditary and idiopathic neuropathy, unspecified; Z87.51 Personal history of pre-term labor; Z87.442 Personal history of urinary calculi; Z3A.36 36 weeks gestation of pregnancy
CPT/HCPCS: 59025; G0378; G0463

== ENCOUNTER 2019-09-08 21:57 | Inpatient (IN) | payer OTHER ==
[~2019-09-08] VITALS: Ht 175.3 cm; Wt 68.5 kg
[2019-09-08 22:20] VITALS: BP 132/81
[2019-09-08 23:27] LABS: HEMATOCRIT 29.6 % (36.0-47.0); HEMOGLOBIN 9.5 g/dl (12.0-15.5); MEAN CORPUSCULAR HEMOGLOBIN 26.1 pg (27.0-33.0); MEAN CORPUSCULAR HGB CONC 32.1 g/dl (32.0-36.5); MEAN CORPUSCULAR VOLUME 81.3 fl (80.0-96.0); PLATELET COUNT, AUTOMATED 232 10^3/uL (150-450); RED BLOOD COUNT 3.64 10^6/uL (4.00-5.40); WHITE BLOOD COUNT 11.1 10^3/uL (4.0-10.0)
[2019-09-09] VITALS (11 sets, daily range): BP systolic 111–163; BP diastolic 59–85
[2019-09-09] MEDS ORDERED: OXYTOCIN 30 UNITS IN 0.9% NaCl 500ML IV BAG (J2590) As Ordered ONE (01:51)
[2019-09-09] MEDS ORDERED: MORPHINE 10 MG/ML 1ML VIAL (J2270) As Ordered ONE (02:45)
[2019-09-09] MEDS ORDERED: MORPHINE 10 MG/ML 1ML VIAL (J2270) IV ONE (03:00)
[2019-09-09] MEDS ORDERED: OXYTOCIN DRIP 30 UNITS in IV 1 EA IV SCH (03:01)
[2019-09-09] MEDS ORDERED: DIBUCAINE 1% OINTMENT 30GM TOP PRN (03:15)
[2019-09-09] MEDS ORDERED: ONDANSETRON 4MG/2ML VIAL (J2405) IV PRN (03:15)
[2019-09-09] MEDS ORDERED: [UNRECOGNIZED DRUG - OTHER] SC ONE (03:15)
[2019-09-09] MEDS ORDERED: ANUSOL HC CREAM 30GM TOP PRN (03:15)
[2019-09-09] MEDS ORDERED: METHYLERGONOVINE MALEATE 0.2 MG TAB PO PRN (03:15)
[2019-09-09] MEDS ORDERED: DOCUSATE SODIUM 100 MG CAP PO PRN (03:15)
[2019-09-09] MEDS: PRENATAL VITAMINS CHEWABLE TABLET PO SCH (08:27)
[2019-09-09] MEDS: ACETAMINOPHEN TAB 650MG DOSE (2X325MG) PO PRN (12:48)
[2019-09-09] MEDS: IBUPROFEN 800 MG TAB PO PRN ×2 (14:41→22:52)
[2019-09-10] MEDS: ACETAMINOPHEN TAB 650MG DOSE (2X325MG) PO PRN (03:24)
[2019-09-10 06:00] VITALS: BP 108/60
--- NOTE | 2019-09-10 08:21 | IPNPDOC ---
Progress Note Date of Service: Sep 10, 2019 Day#: 2 Progress Note PPD 2 SUBJECT: Darwin is a 24yo [id number] s/p uncomplicated precipitous at 38w1d after presenting in active labor, doing well day #2. She has been ambulating, voiding spontaneously without issue and tolerating regular diet. Breast feeding without issue. Reports lochia is like a normal period. No f/c/n/v/CP/SOB. OBJECTIVE: VITAL SIGNS: Within normal limits, afebrile. Alert and oriented times three. Abdomen: Fundus firm at U-2. Soft, NTTP. Extremities: no pain with palpation of calves ASSESSMENT: Darwin is a 24yo [id number] s/p uncomplicated precipitous at 38w1d after presenting in active labor, doing well day #2. Vitals within normal limits, afebrile, hemodynamically stable with no evidence of infection. PLAN: 1. Discharge to home today. 2. Tylenol and Motrin for pain. 3. Encourage breast feeding and ambulation. 4. Routine PP visit in 6 weeks in clinic. 5. Discussed return precautions at length. 6. Vaginal rest 6 weeks and no heavy lifting Dr. Radha Alas MD VS, I&O, 24H, Fishbone Vital Signs/I&O Vital Signs Date Time Temp Pulse Resp B/P (MAP) Pulse Ox O2 Delivery O2 Flow Rate FiO2 09/10/19 06:00 97.4 102 20 108/60 (76) 97 Room Air I&O- Last 24 Hours up to 6 AM 09/10/19 06:00 Intake Total 300 ml Output Total 920 ml Balance -620 ml Radha Alas MD Sep 10, 2019 08:21
[2019-09-10] MEDS ORDERED: DIBU10OI TOP (08:26)
[2019-09-10] MEDS ORDERED: IBUP80TA PO (08:26)
--- NOTE | 2019-09-10 08:33 | DS.PDOC ---
Discharge Summary General Date of Admission Sep 08, 2019 at 23:37 Date of Discharge 09/10/19 Attending Physician: Radha Alsa MD Discharge Summary PROCEDURES PERFORMED DURING STAY: spontaneous vaginal delivery ADMITTING DIAGNOSES: 1. active labor at term DISCHARGE DIAGNOSES: 1. active labor at term COMPLICATIONS/CHIEF COMPLAINT: LABOR. HISTORY OF PRESENT ILLNESS/HOSPITAL COURSE: Darwin is a 24yo [id number] s/p uncomplicated precipitous at 38w1d after presenting in active labor. She had a benign course and at time of discharge, vitals were within normal limits, she was afebrile, hemodynamically stable with no evidence of infection. DISCHARGE MEDICATIONS: Please see below. ALLERGIES: Please see below. PHYSICAL EXAMINATION ON DISCHARGE: VITAL SIGNS: Within normal limits, afebrile. Alert and oriented times three. Abdomen: Fundus firm at U-2. Soft, NTTP. Extremities: no pain with palpation of calves LABORATORY DATA: Please see below. DIET: regular DISPOSITION: Home DISCHARGE PLAN/INSTRUCTIONS: 1. Discharge to home today. 2. Tylenol and Motrin for pain. 3. Encourage breast feeding and ambulation. 4. Routine PP visit in 6 weeks in clinic. 5. Discussed return precautions at length. 6. Vaginal rest 6 weeks and no heavy lifting DISCHARGE CONDITION: Stable TIME SPENT ON DISCHARGE: Greater than [address] Radha Alas MD Vital Signs/I&Os Vital Signs Date Time Temp Pulse Resp B/P (MAP) Pulse Ox O2 Delivery O2 Flow Rate FiO2 09/10/19 06:00 97.4 102 20 108/60 (76) 97 Room Air I&O- Last 24 Hours up to 6 AM 09/10/19 06:00 Intake Total 300 ml Output Total 920 ml Balance -620 ml Discharge Medications Scheduled PRN Dibucaine (Dibucaine) 28 Gm Oint...g., 0 DOSE TOP Q4HP PRN for PAIN Ibuprofen (Ibuprofen) 800 Mg Tablet, 800 MG PO Q8HP PRN for PAIN LEVEL 6-10 Miscellaneous Medications Acetaminophen (Mapap) 500 Mg Tablet, 600 TAB PO, (Reported) Allergies Coded Allergies: No Known Allergies (Unverified , 08/21/19) Radha Alas MD Sep 10, 2019 08:33
[2019-09-10] MEDS: PRENATAL VITAMINS CHEWABLE TABLET PO SCH (09:03)
== END 2019-09-10 13:10 | disposition home or self-care (01) | DRG 807 ==
LOC: M LDO 21:57 → M LDI 23:37 → M OBS 09-09 04:39
PROVIDERS: ADMIT Advanced Practice Midwife; ATTEND Advanced Practice Midwife
PROC: 10E0XZZ Delivery of Products of Conception, External Approach (ICD-10-PCS; principal; 2019-09-09)
DX: O42.02 Full-term premature rupture of membranes, onset of labor within 24 hours of rupture (principal); Z37.0 Single live birth; Z3A.38 38 weeks gestation of pregnancy; O70.0 First degree perineal laceration during delivery; O71.82 Other specified trauma to perineum and vulva; O62.3 Precipitate labor

== ENCOUNTER → 2020-06-20 | Outpatient (REF) | payer OTHER ==
[~2020-06-20] MED LIST changes: +DIBU10OI TOP; +IBUP80TA PO
== END ==
LOC: M LAB REF 17:08
PROVIDERS: ATTEND Physician Assistant
DX: J02.9 Acute pharyngitis, unspecified (principal)

== ENCOUNTER → 2020-10-24 | Outpatient (REF) | payer OTHER | LOC: M LAB REF 21:04 | PROVIDERS: ATTEND Physician Assistant | DX: J02.9 Acute pharyngitis, unspecified (principal) ==

== ENCOUNTER → 2021-01-28 | Outpatient (CLI) | payer OTHER ==
[~2021-01-28] MED LIST changes: -DIBU10OI TOP; +DIBU28OI2 TOP
--- NOTE | 2021-01-28 13:50 | REP ---
INDICATION: OA JULIANA HANDS. COMPARISON: None. TECHNIQUE: Multiple sequences obtained of the left hand in the axial, coronal and sagittal planes. FINDINGS: The osseous structures of the hand demonstrate normal bone marrow signal. There is no bone marrow edema or occult fracture. The joint spaces are unremarkable. No joint effusion is seen. No ganglion cyst is seen. Flexor and extensor tendons are intact without evidence of tenosynovitis. The visualized collateral ligaments are intact. Carpal tunnel region is unremarkable. IMPRESSION: Negative MRI left hand. <Electronically signed by Panda Castaneda > 01/28/21 [id number]
--- NOTE | 2021-01-28 13:56 | REP ---
INDICATION: OA JULIANA HANDS. COMPARISON: None. TECHNIQUE: Multiple sequences obtained of the right hand in the axial, coronal and sagittal planes. FINDINGS: The osseous structures of the hand demonstrate normal bone marrow signal. There is no bone marrow edema or occult fracture. The joint spaces are unremarkable. No joint effusion is seen. No ganglion cyst is seen. Flexor and extensor tendons are intact without evidence of tenosynovitis. The visualized collateral ligaments are intact. Carpal tunnel region is unremarkable. IMPRESSION: Negative MRI right hand. <Electronically signed by Panda Castaneda > 01/28/21 [id number]
== END ==
LOC: M PLARAD 12:24
PROVIDERS: ATTEND Physician Assistant
DX: M19.049 Primary osteoarthritis, unspecified hand (principal)

== ENCOUNTER → 2023-01-31 | Outpatient (REF) | LOC: M EMP 08:33 | PROVIDERS: ATTEND Family Medicine | DX: Z11.52 Encounter for screening for COVID-19 (principal) ==

== ENCOUNTER → 2023-02-01 | Outpatient (REF) | LOC: M EMP 08:07 | PROVIDERS: ATTEND Family Medicine | DX: Z11.52 Encounter for screening for COVID-19 (principal) ==

== ENCOUNTER 2023-09-03 13:57 | Emergency (ER) | payer OTHER ==
[~2023-09-03] VITALS: Ht 175.3 cm; Wt 61.4 kg
[2023-09-03 14:31] LABS: BASO # 0.1 10^3/uL (0.0-0.2); BASO % 1.1 % (0.0-1.0); EOS # 0.1 10^3/uL (0.0-0.5); EOS % 0.8 % (0.0-3.0); HEMATOCRIT 40.8 % (36.0-47.0); HEMOGLOBIN 13.1 g/dl (12.0-15.5); LYMPH # 2.9 10^3/uL (1.5-5.0); LYMPH % 43.9 % (24.0-44.0); MEAN CORPUSCULAR HEMOGLOBIN 27.2 pg (27.0-33.0); MEAN CORPUSCULAR HGB CONC 32.1 g/dl (32.0-36.5); MEAN CORPUSCULAR VOLUME 84.8 fl (80.0-96.0); MONO # 0.4 10^3/uL (0.0-0.8); MONO % 5.8 % (2.0-8.0); NEUTROPHILS # 3.2 10^3/uL (1.5-8.5); NEUTROPHILS % 48.2 % (36.0-66.0); PLATELET COUNT, AUTOMATED 335 10^3/uL (150-450); RED BLOOD COUNT 4.81 10^6/uL (4.00-5.40); WHITE BLOOD COUNT 6.5 10^3/uL (4.0-10.0)
[2023-09-03 14:44] LABS: INR 1.05; PROTHROMBIN TIME 13.4 SECONDS (12.5-14.5)
[2023-09-03] MEDS ORDERED: ISOVUE-370 76% 100ML VIAL As Ordered ONE (14:54)
[2023-09-03 15:01] LABS: ALBUMIN 4.5 G/DL (3.2-5.2); ALKALINE PHOSPHATASE 64 U/L (46-116); ALT/SGPT 17 U/L (7.0-40); AST/SGOT 37 U/L (<34); BILIRUBIN,DIRECT < 0.1 MG/DL (<0.4); BILIRUBIN,TOTAL 0.5 MG/DL (0.3-1.2); CK-MB VALUE MASS < 1.0 NG/ML (<3.6); CPK CREATINE PHOSPHOKINASE 157 U/L (34-145); LIPASE 53 U/L (12-53); MB/CK RELATIVE INDEX 0.63 (< OR =4); TOTAL PROTEIN 8.3 G/DL (5.7-8.2)
[2023-09-03 15:04] LABS: RSV AMPLIFICATION NEGATIVE (NEGATIVE)
[2023-09-03 15:56] LABS: CK-MB VALUE MASS < 1.0 NG/ML (<3.6)
[2023-09-03 16:00] LABS: CPK CREATINE PHOSPHOKINASE 113 U/L (34-145); MB/CK RELATIVE INDEX 0.88 (< OR =4)
[2023-09-03 16:45] VITALS: BP 105/64; TEMP 97.4; O2SAT 96
== END 2023-09-03 17:00 | disposition home or self-care (01) ==
LOC: M ED 13:57 → EDBD 13:57 → M ED 17:00
DX: R07.9 Chest pain, unspecified (principal); E28.2 Polycystic ovarian syndrome
CPT/HCPCS: 36415; 71275; 80047; 80076; 82550; 82553; 83690; 84484; 85025; 85610; 87631; 93005; 93041; 94760; 99285; Q9967

== ENCOUNTER → 2023-10-14 | Outpatient (REF) | LOC: M EMP 08:33 | PROVIDERS: ATTEND Family Medicine | DX: Z11.52 Encounter for screening for COVID-19 (principal) ==

== ENCOUNTER → 2024-01-14 | Outpatient (REF) | LOC: M EMP 13:26 | PROVIDERS: ATTEND Family Medicine | DX: Z11.52 Encounter for screening for COVID-19 (principal) ==